=== PATIENT | male | born 1985 | race Caucasian/White ===

== ENCOUNTER 2018-02-14 17:00 | Emergency (ER) | payer OTHER ==
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
[2018-02-14 20:19] VITALS: BP 112/78; PULSE 78; RESP 18; TEMP 98; O2SAT 100
--- NOTE | 2018-02-15 09:16 | RAD ---
PROCEDURE: Radiographs of the Right Shoulder HISTORY: trauma COMPARISON: No prior. FINDINGS: BONES: No acute fracture or destructive bony lesion identified. JOINTS: The glenohumeral joint appears unremarkable. The acromioclavicular joint appears upper limits normal with at 7 mm. No definitive disruption of the joint is apparent. SOFT TISSUES: Normal. OTHER FINDINGS: None. IMPRESSION: No acute fracture or dislocation appreciated. Upper limits of normal acromioclavicular joint width.
== END 2018-02-14 19:15 | disposition home or self-care (01) ==
LOC: H.ER 17:00
DX: S49.91XA Unspecified injury of right shoulder and upper arm, initial encounter (principal); X50.9XXA Other and unspecified overexertion or strenuous movements or postures, initial encounter; Y92.410 Unspecified street and highway as the place of occurrence of the external cause; E11.9 Type 2 diabetes mellitus without complications
CPT/HCPCS: 73030; 96372; 99284; J1885

== ENCOUNTER 2018-03-24 16:17 | Emergency (ER) | payer OTHER ==
[2018-03-24] MEDS ORDERED: Iohexol 240 (50 ml) PO ONE (18:28)
[2018-03-24] MEDS ORDERED: Sodium Chloride 0.9% 1,000 ML IV STA (18:41)
[2018-03-24] MEDS ORDERED: Iohexol 240 (50 ml) ONE (19:05)
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
[2018-03-24 19:18] LABS: BASO % 0.9 % (0.0-2.0); EOS % 0.8 % (0.0-4.0); HEMOGLOBIN 14.9 g/dL (12.0-18.0); LYMPH # 1.6 K/uL (1.0-4.3); LYMPH % 47.2 % (20.0-40.0); MEAN CELL VOLUME 77.4 fl (80.0-94.0); MEAN CORPUSCULAR HEMOGLOBIN 26.7 pg (27.0-31.0); MEAN CORPUSCULAR HGB CONC 34.5 g/dL (33.0-37.0); MEAN PLATELET VOLUME 8.4 fl (7.2-11.7); MONO # 0.6 K/uL (0.0-0.8); MONO % 18.2 % (0.0-10.0); NEUT # 1.1 K/uL (1.8-7.0); NEUT % 32.9 % (50.0-75.0); NRBC % 0.6 % (0.0-0.0); RBC 5.58 Mil/uL (4.40-5.90); RED CELL DISTRIBUTION WIDTH 13.2 % (11.5-14.5); WHITE BLOOD COUNT 3.3 K/uL (4.8-10.8)
[2018-03-24 19:21] LABS: SQUAMOUS EPITHIAL < 1 /hpf (0-5); URINE BILIRUBIN NEGATIVE (NEGATIVE); URINE BLOOD NEGATIVE (NEGATIVE); URINE CLARITY CLEAR (Clear); URINE COLOR YELLOW (YELLOW); URINE GLUCOSE (UA) NEG (Normal); URINE LEUKOCYTE ESTERASE NEG Leu/uL (Negative); URINE PROTEIN NEGATIVE (NEGATIVE); URINE UROBILINOGEN 0.2-1.0 mg/dL (0.2-1.0)
[2018-03-24 19:28] LABS: ALB/GLOB RATIO 1.4 (1.0-2.1); ALBUMIN 4.3 g/dL (3.5-5.0); ALT/SGPT 48 U/L (21-72); AST/SGOT 28 U/L (17-59); BLOOD UREA NITROGEN 8 mg/dl (9-20); CALCIUM 9.6 mg/dL (8.4-10.2); GFR AFRICAN-AMERICAN > 60; GFR NON-AFRICAN AMERICAN > 60
[2018-03-24] MEDS ORDERED: Sodium Chloride 0.9% 100 ML ONE (21:28)
[2018-03-24] MEDS ORDERED: Iodixanol 320 MG/ML 100 ML BOTTLE IV ONE (21:28)
[2018-03-24 23:34] VITALS: BP 115/79; PULSE 61; RESP 16; TEMP 98.3
--- NOTE | 2018-03-25 07:48 | CT ---
Date of service: 03/24/2018 PROCEDURE: CT Abdomen and Pelvis with contrast HISTORY: Left lower quadrant abdominal pain COMPARISON: None. TECHNIQUE: Contrast dose: 95 cc Visipaque 320. Radiation dose: Total exam DLP = 1194.61 mGy-cm. This CT exam was performed using one or more of the following dose reduction techniques: Automated exposure control, adjustment of the mA and/or kV according to patient size, and/or use of iterative reconstruction technique. FINDINGS: LOWER THORAX: Unremarkable. LIVER: Hepatic steatosis. No focal masses. No intrahepatic bile duct dilatation or perihepatic ascites. GALLBLADDER AND BILE DUCTS: Unremarkable. PANCREAS: Unremarkable. No gross lesion or ductal dilatation. SPLEEN: Unremarkable. ADRENALS: Unremarkable. No mass. KIDNEYS AND URETERS: Unremarkable. No hydronephrosis. No solid mass. VASCULATURE: Unremarkable. No aortic aneurysm. BOWEL: Inflammatory changes affecting the fat of the descending colon consistent with epiploic appendagitis. Constipation without fecal impaction or obstruction. APPENDIX: Normal appendix. PERITONEUM: Unremarkable. No free fluid. No free air. LYMPH NODES: Unremarkable. No enlarged lymph nodes. BLADDER: Unremarkable. REPRODUCTIVE: Unremarkable. BONES: No acute fracture. OTHER FINDINGS: None. IMPRESSION: Inflammatory changes affecting the fat adjacent to insert segment descending colon consistent with epiploic appendagitis. Additional benign and/or incidental findings described above. Concordant results (preliminary interpretation) provided by [employer]. Procedure Completed: 21:43 Preliminary ([facility]) Report: Dictated and Authenticated: 22:51 Final Interpretation: 07:46 March 25, 2018.
[2018-03-26 10:31] VITALS: O2SAT 97
== END 2018-03-24 23:35 | disposition home or self-care (01) ==
LOC: H.ER 16:17
DX: Q43.8 Other specified congenital malformations of intestine (principal); K59.00 Constipation, unspecified; K63.89 Other specified diseases of intestine; K76.0 Fatty (change of) liver, not elsewhere classified; E11.9 Type 2 diabetes mellitus without complications
CPT/HCPCS: 74177; 80053; 81003; 85025; 87086; 96361; 96374; 99283; J1885; J7030; Q9966; Q9967